=== PATIENT | female | born 1970 | race Caucasian/White ===

== ENCOUNTER 2017-02-28 02:32 | Emergency (ER) | payer OTHER | END 2017-02-28 04:55 | LOC: E/R 02:32 | DX: S49.91XA Unspecified injury of right shoulder and upper arm, initial encounter (principal); F17.220 Nicotine dependence, chewing tobacco, uncomplicated; Y04.0XXA Assault by unarmed brawl or fight, initial encounter; Y92.9 Unspecified place or not applicable; Z02.89 Encounter for other administrative examinations | CPT/HCPCS: 73030; 73030-RT; 99283-25 ==